=== PATIENT | female | born 1995 | race Caucasian/White ===

== ENCOUNTER 2021-07-10 05:44 | Emergency (ER) | payer BC ==
[2021-07-10 05:51] VITALS: BP 110/69; PULSE 102; TEMP 98.6; BMI 25.0
[2021-07-10] MEDS ORDERED: IBUPROFEN 600 MG TABLET (FP) PO ONE ×2 (06:59→07:04)
== END 2021-07-10 07:11 | disposition home or self-care (01) ==
LOC: FER 05:44
DX: S93.402A Sprain of unspecified ligament of left ankle, initial encounter (principal); X50.0XXA Overexertion from strenuous movement or load, initial encounter
CPT/HCPCS: 73610-TC-LT-FY; 99283-25